=== PATIENT | female | born 1950 | race Caucasian/White ===

== ENCOUNTER 2019-04-30 19:59 | Observation (INO) ==
[2019-04-30] MEDS ORDERED: DiphenhydrAMINE HCL 50 MG/ML VIAL IV STA (20:20)
[2019-04-30] MEDS ORDERED: SODIUM CHLORIDE 0.9% 1000ML 1,000 ML IV ONE (20:20)
[2019-04-30] MEDS ORDERED: METOCLOPRAMIDE HCL INJ 5 MG/ML 2 ML VIAL IV STA (20:20)
--- NOTE | 2019-04-30 20:49 | XRay Report ---
SINGLE VIEW CHEST CLINICAL HISTORY: Atypical chest pain. Vertigo. FINDINGS: An AP, portable, upright chest radiograph is obtained. No prior studies are available for c omparison at the time of dictation. The examination is degraded by portable technique and patient rot ation. The heart is enlarged and there is atherosclerotic calcification of the thoracic aorta. Emphy sematous change is suggested. No airspace consolidation or large pleural effusion is identified. No p neumothorax is seen. The skeletal structures are osteopenic. The bony thorax is grossly intact. IMPRESSION: Cardiomegaly and suspect emphysema. No acute cardiopulmonary abnormality is identified. Electronically signed by: Augusto Vega M.D. 04/30/2019 8:48 PM
[2019-04-30 20:50] LABS: Basophils # (auto) 0.02 K/uL (0-0.2); Basophils % (auto) 0.3 %; Eosinophils # (auto) 0.03 K/uL (0-0.5); Eosinophils % (auto) 0.4 %; Hematocrit (blood only) 37.1 % (37-47); Hemoglobin 12.9 g/dL (12.0-16.0); Immature Granulocytes # (auto) 0.01 K/uL (0.00-0.02); Immature Granulocytes % (auto) 0.1 %; Lymphocytes # (auto) 0.84 K/uL (1.2-3.4); Mean Corpuscular Hgb Conc 34.8 g/dL (32-36); Mean Corpuscular Volume 92.3 fL (80-100); Mean Platelet Volume 10.4 fL (7.4-10.4); Monocytes # (auto) 0.23 K/uL (0.11-0.59); Neutrophils # (auto) 6.48 K/uL (1.4-6.5); Neutrophils % (auto) 85.2 %; Platelet Count 199 K/uL (130-400); RDW Coefficient of Variation 12.7 % (11.5-14.5); RDW Standard Deviation 42.8 fL (36.4-46.3); Red Blood Count 4.02 M/uL (4.2-5.4); White Blood Count 7.61 K/uL (4.8-10.8)
[2019-04-30 21:08] LABS: Alanine Aminotransferase 28 U/L (12-78); Aspartate Aminotransferase 33 U/L (15-37); BUN Creatinine Ratio 15.2 (10-20); Bilirubin Direct < 0.1 mg/dl (0-0.2); Blood Urea Nitrogen 15 mg/dl (7-18); Carbon Dioxide 25 mmol/L (21-32); Chloride 105 mmol/L (98-107); Est GFR (African American) 67.9; Est GFR (Non-African American) 58.6; Glucose 125 mg/dl (70-99); Phosphorus 3.1 mg/dl (2.5-4.9); Potassium 3.4 mmol/L (3.5-5.1); Sodium 140 mmol/L (136-145)
[2019-04-30 21:10] LABS: iSTAT Creatinine 0.9 mg/dl (0.6-1.3); iSTAT Hemoglobin 12.9 g/dl (12.0-16.0); iSTAT Ionized Calcium 1.1 mmol/l (1.12-1.32); iSTAT Potassium 3.5 mEq/L (3.3-5.0)
[2019-04-30] MEDS ORDERED: OPTIRAY 320 125ml IV PRN (21:14)
[2019-04-30 21:17] LABS: Albumin Globulin Ratio 1.1 (0.9-2); Alkaline Phosphatase 75 U/L (45-117); Bilirubin,Total 0.4 mg/dl (0.2-1); Globulin 3.6 gm/dl (2.5-4.0); Total Protein 7.6 gm/dl (6.4-8.2); Troponin I < 0.015 ng/ml (0-0.045)
--- NOTE | 2019-04-30 21:25 | CT Scan Report ---
UNENHANCED CT OF THE BRAIN; CT ANGIOGRAM OF THE BRAIN; CT ANGIOGRAM OF THE NECK CLINICAL HISTORY: Vertigo. Dizziness. COMPARISON STUDY: No priors. TECHNIQUE: Unenhanced axial CT scan of the brain is performed. Subsequently, following the IV adminis tration of 120 of Optiray 320, CT angiogram of the head and neck was performed from the aortic arch t o the vertex. Images are reviewed in the axial, sagittal, and coronal planes. 3-D MIPS images are cre ated and assessed. IV contrast was administered without complication. All measurements were calculate d based on NASCET criteria. A dose lowering technique was utilized adhering to the principles of ALA RA. CT DOSE: 875.09 mGy.cm FINDINGS: Brain parenchyma: The brain parenchyma is normal in appearance. There is no hemorrhage, mass effect, or evidence of acute territorial ischemia by CT criteria. There is no evidence of enhancing mass lesi on on the angiogram phase images. The ventricles, sulci, and cisterns are normal in configuration. Gr ay-white matter differentiation is preserved. No extra-axial fluid collection is seen. Thoracic aorta: There is mild atherosclerotic calcification of the visualized thoracic aorta. Visuali zed portions of the thoracic aorta are normal in caliber. The aortic arch demonstrates standard 3-ves ashley anatomy. Right carotid arterial system: The right common carotid artery is widely patent, as are the right int ernal and external carotid arteries. Left carotid arterial system: The left common carotid artery is widely patent, as are the left design engineering intern al and external carotid arteries. Vertebral arteries: Widely patent bilaterally and codominant. Subclavian arteries: Widely patent bilaterally. Intracranial vasculature: There is atherosclerotic calcification of the cavernous carotid arteries. T here is origin of the right posterior cerebral artery and a large left posterior communicating artery. The internal carotid arteries are patent at the skull base, as are the anterior and middle ce rebral arteries bilaterally. The vertebrobasilar system and posterior cerebral arteries are widely pa tent. The basilar artery is diminutive. The vertebral arteries are codominant. There is no aneurysm, high-grade stenosis, or focal vessel cut off seen throughout the intracranial circulation. Jugular veins: Widely patent bilaterally. Dural sinuses: Patent. Lung apices: Partially visualized upper lobe lung parenchyma appears clear. Soft tissues: The visualized pharyngeal soft tissues are normal in appearance noting angiographic pha se technique. The oropharyngeal airway appears widely patent. The salivary and thyroid glands are nor mal in appearance. No cervical lymphadenopathy is seen. Orbits: The bony orbits are intact. Orbital contents are normal in appearance. Skeletal structures: The skeletal structures are osteopenic. The calvarium appears intact. The cervic al spine is maintained noting mild spondylosis. No lytic or blastic lesion is seen. Sinuses and mastoids: Trace mucosal thickening is seen in the right maxillary antrum. The remaining p aranasal sinuses are clear. There are small mastoid effusions, left larger than right. IMPRESSION: 1. There is no hemorrhage, mass effect, or evidence of acute territorial ischemia by CT criteria. 2. Unremarkable CT angiogram of the brain. 3. Unremarkable CT angiogram of the neck. Electronically signed by: Augusto Vega M.D. 04/30/2019 9:24 PM
[2019-04-30] MEDS ORDERED: MECLIZINE HCL 25 MG TAB PO STA (22:03)
[2019-04-30] MEDS ORDERED: DEXAMETHASONE SOD PHOSPHATE 10 MG in SYRINGE 0 ML IV STA (22:09)
--- NOTE | 2019-04-30 22:09 | Emergency Department Note ---
Entered by Sadie El acting as a scribe for History of Present Illness General Chief complaint: Vomiting Stated complaint: DIZZY,VOMTING Time Seen by Provider: 04/30/19 20:09 Source: patient History of Present Illness Onset (ago): hour(s) 4 Location: head Severity: similar to prior episodes Pain Consistency: + other (persistent) Maximum Pain Intensity: 0 Quality: + other (room-spinning dizziness) Exacerbated By: + movement Associated symptoms: + other (negative congestion; negative diarrhea); no cough and no fever/chills Treatments prior to arrival: none The patient is a 68 year old female who presents to the Emergency Room with complaints of persistent room-spinning dizziness that began at about 1600, 4 hours prior to arrival. She states that she has been nauseous and vomiting during this time. The patient states that her symptoms are exacerbated with movement. The patient denies recent fever, chills, cough, congestion, and diarrhea. She states that she woke up this morning feeling at her baseline. The patient states that this is similar to a prior episode about one month ago. The patient states that she has had several episodes throughout this month of similar symptoms, but states that she goes several days in between these episodes. She states that she is not on any medication for these symptoms as she has not seen her doctor. Home Medications Home Medications Medication Instructions Recorded Confirmed Type ibuprofen 200 mg PO DIRECTED PRN 04/30/19 04/30/19 History melatonin 0 mg PO HS PRN 04/30/19 04/30/19 History valerian root 0 mg PO DAILY PRN 04/30/19 04/30/19 History Allergies Allergy/AdvReac Type Severity Reaction Status Date / Time Unable to Assess Allergy Unverified 04/30/19 21:14 Past Med/Surg History Medical History No significant past medical history Social History Preferred Language: Burkinan Feels Safe at Home: Yes Smoking Status: Never smoker Review of Systems See HPI for pertinent positives & negatives. and A total of 10 systems reviewed and were otherwise negative Physical Exam Vital Signs Vital Signs - 24 hr 04/30/19 20:03 04/30/19 22:32 05/01/19 00:44 Temperature 36.4 C L Temperature Source Oral Sepsis Recent Fever Within 48 Hours No Sepsis New/Unexplained Change in Mental Status No Sepsis Action Taken by Nursing No Action Required Pulse Rate 59 L Pulse Rate [Right Finger] 63 48 L Pulse Rhythm [Right Finger] Regular Pulse Strength [Right Finger] Normal Respiratory Rate 16 16 17 Respiratory Effort / Characteristics Non-Labored Non-Labored Spontaneous Respiratory Depth Normal Normal Respiratory Pattern Regular Regular Blood Pressure 155/81 H Blood Pressure [Right Arm] 123/73 124/65 Blood Pressure Mean 105 Blood Pressure Mean [Right Arm] 89 84 Blood Pressure Position [Right Arm] Lying Lying Pulse Oximetry 97 97 98 Oxygen Delivery Method Room Air Room Air Room Air GENERAL: Awake, alert, uncomfortable-appearing, in no distress HENT: Normocephalic, atraumatic. Oropharynx with dry mucous membranes and otherwise unremarkable. EYES: Normal conjunctiva. Sclera non-icteric. Bilateral horizontal nystagmus provoked by head movements. Left eye strabismus which the patient reports is chronic. NECK: Supple. No nuchal rigidity. FROM. No JVD. RESPIRATORY: CTAB. CARDIAC: Regular rate, normal rhythm. Extremities warm and well perfused. Pulses equal. ABDOMEN: Soft, non-distended. No tenderness to palpation. No rebound or guarding. No masses. RECTAL: Deferred. MUSCULOSKELETAL: Chest examination reveals no tenderness. The back is symmetrical on inspection without obvious abnormality. There is no CVA tenderness to palpation. No joint edema. LOWER EXTREMITIES: Calves are equal size bilaterally and non-tender. No edema. No discoloration. NEURO: Normal sensorium. No sensory or motor deficits noted. Cerebellar function intact, including finger to nose, alternating palms, heel to freire. 5/5 strength and SILT x 4 extremities. SKIN: No rash or jaundice noted. Course 2012: Past medical records reviewed. The patient was evaluated in room C3. A complete history and physical exam was performed. 2158: Upon reevaluation, the patient was improved but still quite symptomatic. Patient agreeable to proceed with MRI and admission. Administered Medications Ioversol (Optiray 320 125ml) 120 ml IV ONCE PRN PRN Reason: Interaction Checking Stop: 05/04/19 21:13 Last Admin: 04/30/19 21:14 Dose: 120 ml Documented by: [id number] Discontinued Medications Dexamethasone Sodium Phosphate (Decadron Pf) Confirm Administered Dose 10 mg .ROUTE .STK-MED ONE Stop: 04/30/19 22:38 Last Admin: 04/30/19 22:40 Dose: 10 mg Documented by: [id number] Diphenhydramine HCl (Benadryl) 25 mg IV NOW STA Stop: 04/30/19 20:21 Last Admin: 04/30/19 20:33 Dose: 25 mg Documented by: [id number] Sodium Chloride (Nss 1000ml) 1,000 mls @ 999 mls/hr IV .Q1H1M ONE Stop: 04/30/19 21:20 Last Infusion: 04/30/19 21:28 Dose: 0 mls/hr Documented by: [id number] Admin: 04/30/19 20:33 Dose: 999 mls/hr Documented by: [id number] Dexamethasone Sodium Phosphate (10 mg/ Syringe) 2.5 mls @ 1 mls/min IV NOW STA Stop: 04/30/19 22:11 Last Admin: 04/30/19 22:40 Dose: Not Given Documented by: [id number] Meclizine HCl (Antivert) 25 mg PO NOW STA Stop: 04/30/19 22:04 Last Admin: 04/30/19 22:25 Dose: 25 mg Documented by: [id number] Metoclopramide HCl (Reglan) 10 mg IV NOW STA Stop: 04/30/19 20:21 Last Admin: 04/30/19 20:33 Dose: 10 mg Documented by: [id number] Medical Decision Making Differential Diagnosis Differential diagnosis: Etiologies such as benign positional vertigo, dehydration, hypovolemia, anemia, tumor, infection, hypoglycemia, electrolyte abnormalities, cardiac sources, intracerebral event, toxicologic, neurologic, as well as others were entertained. Medical Records Attestation: I reviewed the patient's medical records. Home Medications Current Medication List: was personally reviewed by me Laboratory Data Attestation: I reviewed the patient's lab results. Result diagrams: 04/30/19 20:26 04/30/19 20:26 Lab Results 04/30/19 04/30/19 04/30/19 Range/Units 20:26 20:26 20:34 WBC 7.61 (4.8-10.8) K/uL RBC 4.02 L (4.2-5.4) M/uL Hgb 12.9 (12.0-16.0) g/dL POC Hgb 12.9 (12.0-16.0) g/dl Hct 37.1 (37-47) % POC Hct 38 (37-47) % MCV 92.3 (80-100) fL MCH 32.1 (25-34) pg MCHC 34.8 (32-36) g/dL RDW Std Deviation 42.8 (36.4-46.3) fL RDW Coeff of Davis 12.7 (11.5-14.5) % Plt Count 199 (130-400) K/uL MPV 10.4 (7.4-10.4) fL Immature Gran % (Auto) 0.1 % Neut % (Auto) 85.2 % Lymph % (Auto) 11.0 % Harper % (Auto) 3.0 % Eos % (Auto) 0.4 % Baso % (Auto) 0.3 % Immature Gran # (Auto) 0.01 (0.00-0.02) K/uL Neut # (Auto) 6.48 (1.4-6.5) K/uL Lymph # (Auto) 0.84 L (1.2-3.4) K/uL Harper # (Auto) 0.23 (0.11-0.59) K/uL Eos # (Auto) 0.03 (0-0.5) K/uL Baso # (Auto) 0.02 (0-0.2) K/uL POC Sodium 140 (135-144) mEq/L Sodium 140 (136-145) mmol/L POC Potassium 3.5 (3.3-5.0) mEq/L Potassium 3.4 L (3.5-5.1) mmol/L POC Chloride 103 (101-112) mEq/L Chloride 105 (98-107) mmol/L Carbon Dioxide 25 (21-32) mmol/L POC Total CO2 24 (24-31) mEq/l Anion Gap 11.0 (3-11) POC Anion Gap 18.0 (16-25) mmol/L POC BUN 15 (7-18) mg/dl BUN 15 (7-18) mg/dl Creatinine 0.99 (0.6-1.2) mg/dl POC Creatinine 0.9 (0.6-1.3) mg/dl Est Cr Clr Drug Dosing 41.0 ml/min Est GFR ( Amer) 67.9 Est GFR (Non-Af Amer) 58.6 BUN/Creatinine Ratio 15.2 (10-20) Glucose 125 H (70-99) mg/dl POC Glucose (other) 132 H (70-99) mg/dl Calcium 9.0 (8.5-10.1) mg/dl POC Ioniz Calcium Blas 1.10 L (1.12-1.32) mmol/l Phosphorus 3.1 (2.5-4.9) mg/dl Magnesium 2.0 (1.8-2.4) mg/dl Total Bilirubin 0.4 (0.2-1) mg/dl Direct Bilirubin < 0.1 (0-0.2) mg/dl AST 33 (15-37) U/L ALT 28 (12-78) U/L Alkaline Phosphatase 75 (45-117) U/L Troponin I < 0.015 (0-0.045) ng/ml Total Protein 7.6 (6.4-8.2) gm/dl Albumin 4.0 (3.4-5.0) gm/dl Globulin 3.6 (2.5-4.0) gm/dl Albumin/Globulin Ratio 1.1 (0.9-2) Lipase 560 H (73-393) U/L TSH 1.840 (0.300-4.500) uIu/ml Imaging Data Radiologist's Impression: Radiology results as stated below per my review and the radiologist's interpretation: SINGLE VIEW CHEST CLINICAL HISTORY: Atypical chest pain. Vertigo. FINDINGS: An AP, portable, upright chest radiograph is obtained. No prior studies are available for comparison at the time of dictation. The examination is degraded by portable technique and patient rotation. The heart is enlarged and there is atherosclerotic calcification of the thoracic aorta. Emphysematous change is suggested. No airspace consolidation or large pleural effusion is identified. No pneumothorax is seen. The skeletal structures are osteopenic. The bony thorax is grossly intact. IMPRESSION: Cardiomegaly and suspect emphysema. No acute cardiopulmonary abnormality is identified. Electronically signed by: Augusto Vega M.D. 04/30/2019 8:[address] OF THE BRAIN; CT ANGIOGRAM OF THE BRAIN; CT ANGIOGRAM OF THE NECK CLINICAL HISTORY: Vertigo. Dizziness. COMPARISON STUDY: No priors. TECHNIQUE: Unenhanced axial CT scan of the brain is performed. Subsequently, following the IV administration of 120 of Optiray 320, CT angiogram of the head and neck was performed from the aortic arch to the vertex. Images are reviewed in the axial, sagittal, and coronal planes. 3-D MIPS images are created and assessed. IV contrast was administered without complication. All measurements were calculated based on NASCET criteria. A dose lowering technique was utilized adhering to the principles of ALARA. CT DOSE: 875.09 mGy.cm FINDINGS: Brain parenchyma: The brain parenchyma is normal in appearance. There is no hemorrhage, mass effect, or evidence of acute territorial ischemia by CT criteria. There is no evidence of enhancing mass lesion on the angiogram phase images. The ventricles, sulci, and cisterns are normal in configuration. Espinoza- white matter differentiation is preserved. No extra-axial fluid collection is seen. Thoracic aorta: There is mild atherosclerotic calcification of the visualized thoracic aorta. Visualized portions of the thoracic aorta are normal in caliber. The aortic arch demonstrates standard 3-vessel anatomy. Right carotid arterial system: The right common carotid artery is widely patent, as are the right internal and external carotid arteries. Left carotid arterial system: The left common carotid artery is widely patent, as are the left internal and external carotid arteries. Vertebral arteries: Widely patent bilaterally and codominant. Subclavian arteries: Widely patent bilaterally. Intracranial vasculature: There is atherosclerotic calcification of the cavernous carotid arteries. There is origin of the right posterior cerebral artery and a large left posterior communicating artery. The internal carotid arteries are patent at the skull base, as are the anterior and middle cerebral arteries bilaterally. The vertebrobasilar system and posterior cerebral arteries are widely patent. The basilar artery is diminutive. The vertebral arteries are codominant. There is no aneurysm, high-grade stenosis, or focal vessel cut off seen throughout the intracranial circulation. Jugular veins: Widely patent bilaterally. Dural sinuses: Patent. Lung apices: Partially visualized upper lobe lung parenchyma appears clear. Soft tissues: The visualized pharyngeal soft tissues are normal in appearance noting angiographic phase technique. The oropharyngeal airway appears widely patent. The salivary and thyroid glands are normal in appearance. No cervical lymphadenopathy is seen. Orbits: The bony orbits are intact. Orbital contents are normal in appearance. Skeletal structures: The skeletal structures are osteopenic. The calvarium appears intact. The cervical spine is maintained noting mild spondylosis. No lytic or blastic lesion is seen. Sinuses and mastoids: Trace mucosal thickening is seen in the right maxillary antrum. The remaining paranasal sinuses are clear. There are small mastoid effusions, left larger than right. IMPRESSION: 1. There is no hemorrhage, mass effect, or evidence of acute territorial ischemia by CT criteria. 2. Unremarkable CT angiogram of the brain. 3. Unremarkable CT angiogram of the neck. Electronically signed by: Augusto Vega M.D. 04/30/2019 9:24 PM ECG Data Attestation: I personally reviewed and interpreted this ECG as follows: Indication: nausea Rate (beats per minute): 58 Rhythm: sinus bradycardia Findings: + other (normal axis; no overt acute ischemia ) and + PVC (occasional) Blood Pressure Blood Pressure Findings: Elevated blood pressure Blood Pressure Disposition: Referred to patients primary care provider MDM Narrative The patient is a pleasant 68-year-old woman with a past medical history of bilateral hearing impairment with hearing aids who presents emergency department with an acute episode beginning at 1600, 4 hours [employer], with worsening of vertigo in the setting of a month-long history of intermittent but fairly regular episodes of vertigo per hpi. On arrival patient is uncomfortable but in no acute distress, afebrile with stable vital signs. The patient does appear clinically dry. She does exhibit bilateral horizontal nystagmus which is exacerbated by head movements and improves once stationary. Left eye strabismus present which the patient reports is chronic. Otherwise, the patient has no focal neurologic deficits. Speech is fluent. Cerebellar function intact includin g [id number], alternating palms, [id number]. 5/5 strength and SILT x 4 extremities. Aside from patient's bilateral nystagmus, presentation/exam is most suggestive of peripheral etiology. Additionally, sx have been intermittent for past month and acute episode today began 4 hours [employer] and thus outside of TPA window, therefore no indication for stroke activation. EKG demonstrates sinus bradycardia with occasional PVCs but no overt acute ischemia. Chest x-ray with no acute process. CTA of the head and neck unremarkable for CVA, ICH, or severe narrowing or occlusion of large vessels and so there is no target for endovascular therapy. WBC, H/H, platelets wnl. Chemistry without acidosis. LFTs and electrolytes unremarkable. Troponin negative. Patient with moderate improvement after IV fluid hydration, Reglan, Benadryl. However still quite symptomatic when sitting up with residual nystagmus. Thus, we will proceed with MRI to further exclude central etiology however given patient continues to be symptomatic reasonable to proceed with admission. Patient is agreeable with this. We will trial dose of steroids for possible component of labyrinthitis though patient denies any recent viral illnesses. Dr. Haynes, [facility] hospitalist paged and confirmed admission and case d/w [facility] admitting resident, Dr. Andrea Guerrero, who will evaluate the for admission. Impression & Plan Vertigo, Dehydration, Sinus bradycardia on ECG Discharge Plan Visit Data *Final* Discharge Date/Time: 05/01/19 00:54 Chief Complaint: Vomiting Stated Complaint: DIZZY,VOMTING ED Provider: Ej Gomez Discharge Problem: Vertigo, Dehydration, Sinus bradycardia on ECG Patient Disposition: Admitted As Inpatient Discharge Instructions Interventions: ED Discharge Assessment Last Done: 05/01/19 00:54 The scribe's documentation has been prepared under my direction and personally reviewed by me in its entirety. I confirm that the note above accurately reflects all work, treatment, procedures, and medical decision making performed by me.
[2019-04-30] MEDS ORDERED: DEXAMETHASONE **PF** INJ 10 MG/ML VIAL ONE (22:37)
--- NOTE | 2019-05-01 00:01 | History & Physical Report ---
Date of Service April 30, 2019 Assessment & Plan (1) TIA (transient ischemic attack): 68-year-old female with a history of stapedectomy presents with intractable vertigo/TIA symptoms. Intractable vertigo/TIA symptoms Stroke work-up commenced in the ED, continuing with inpatient observation Neurology consulted, appreciate recommendations CTA head and neck was negative MRI brain with IAC considering history of stapedectomy Aspirin given the emergency room, continue falls protocol/aspiration protocol, PT/OT Continue symptomatic controlZofran, meclizine Continue IV fluids N.p.o./full code/SCDs, ambulate (2) Vertigo: (3) Vomiting: History of Present Illness Primary Care Provider: NO PCP 68-year-old female with a history of stapedectomy presents with severe vertigo beginning today at 4:30 PM. Patient states that she has had episodic vertigo over the past 1 month. She denies any focal neuro deficits including facial droop, speech issues, weakness, numbness, headache. The patient denies any recent history of viral symptoms including URI and gastroenteritis. The patient does report having approximately 4 episodes of vomiting since her symptoms began Allergies Allergy/AdvReac Type Severity Reaction Status Date / Time Unable to Assess Allergy Unverified 04/30/19 21:14 Home Medications Home Medications Medication Instructions Recorded Confirmed Type ibuprofen 200 mg PO DIRECTED PRN 04/30/19 04/30/19 History melatonin 0 mg PO HS PRN 04/30/19 04/30/19 History valerian root 0 mg PO DAILY PRN 04/30/19 04/30/19 History Past Med/Surg History Medical History No significant past medical history Social History Preferred Language: German Feels Safe at Home: Yes Smoking Status: Never smoker Review of Systems Review of Systems: All systems reviewed & are unremarkable except as noted in HPI & below Physical Exam Constitutional: WD/WN, vitals as above Eyes: PERRL, conjunctivae normal, anicteric sclerae + nystagmus (Horizontal) ENMT: Ears: + TM abnormality (Mucoid effusion behind right TM, no erythema); no hearing impairment and no external ear abnormality Nose: no external nose abnormality Mouth: no lip abnormality, no oropharynx abnormality and no tongue abnormality Neck: trachea midline, no thyromegaly Respiratory: normal respiratory effort, lungs clear to auscultation Cardiovascular: RRR, no murmur, no edema Gastrointestinal (Abdomen): normal bowel sounds, soft, nontender, no hepatosplenomegaly Musculoskeletal: no cyanosis or clubbing, extremities motor strength 5/5 Skin: no rashes, warm and dry Neurologic: PERRL, EOMI, accommodation nl, no face palsy, no dysarthria Psychiatric: A+Ox3, euthymic affect Results & Data Vital Signs (Past 12 Hours) Vital Signs Temp Pulse Pulse Resp BP BP Pulse Ox 04/30/19 22:32 63 16 123/73 97 04/30/19 20:03 36.4 C L 59 L 16 155/81 H 97 Diagnostic Findings [place], [place] [phone] CT Scan Report Patient: NORMAN MEDINA EAdmjame Date: 04/30/19 MR#: [id number]: [id number] Acct ID:[id number]: Date: 1950[facility] Zip: [place] [address] Age: 68Location: ED Sex: F Room/Bed: Att Phy: Diagnosis: DIZZY,VOMTING Roshni Phy: PCP,NO Service Date: 04/30/19 Fam Phy: Interpreting Phy: Augusto Vega MD Admit Phy: Ordering Phy: Ej Gomez M.D. cc: ~ UNENHANCED CT OF THE BRAIN; CT ANGIOGRAM OF THE BRAIN; CT ANGIOGRAM OF THE NECK CLINICAL HISTORY: Vertigo. Dizziness. COMPARISON STUDY: No priors. TECHNIQUE: Unenhanced axial CT scan of the brain is performed. Subsequently, following the IV administration of 120 of Optiray 320, CT angiogram of the head and neck was performed from the aortic arch to the vertex. Images are reviewed in the axial, sagittal, and coronal planes. 3-D MIPS images are created and assessed. IV contrast was administered without complication. All measurements were calculated based on NASCET criteria. A dose lowering technique was utilized adhering to the principles of ALARA. CT DOSE: 875.09 mGy.cm FINDINGS: Brain parenchyma: The brain parenchyma is normal in appearance. There is no hemorrhage, mass effect, or evidence of acute territorial ischemia by CT criteria. There is no evidence of enhancing mass lesion on the angiogram phase images. The ventricles, sulci, and cisterns are normal in configuration. Espinoza- white matter differentiation is preserved. No extra-axial fluid collection is seen. Thoracic aorta: There is mild atherosclerotic calcification of the visualized thoracic aorta. Visualized portions of the thoracic aorta are normal in caliber. The aortic arch demonstrates standard 3-vessel anatomy. Right carotid arterial system: The right common carotid artery is widely patent, as are the right internal and external carotid arteries. Left carotid arterial system: The left common carotid artery is widely patent, as are the left internal and external carotid arteries. Vertebral arteries: Widely patent bilaterally and codominant. Subclavian arteries: Widely patent bilaterally. Intracranial vasculature: There is atherosclerotic calcification of the cavernous carotid arteries. There is origin of the right posterior cerebral artery and a large left posterior communicating artery. The internal carotid arteries are patent at the skull base, as are the anterior and middle cerebral arteries bilaterally. The vertebrobasilar system and posterior cerebral arteries are widely patent. The basilar artery is diminutive. The vertebral arteries are codominant. There is no aneurysm, high-grade stenosis, or focal vessel cut off seen throughout the intracranial circulation. Jugular veins: Widely patent bilaterally. Dural sinuses: Patent. Lung apices: Partially visualized upper lobe lung parenchyma appears clear. Soft tissues: The visualized pharyngeal soft tissues are normal in appearance noting angiographic phase technique. The oropharyngeal airway appears widely patent. The salivary and thyroid glands are normal in appearance. No cervical lymphadenopathy is seen. Orbits: The bony orbits are intact. Orbital contents are normal in appearance. Skeletal structures: The skeletal structures are osteopenic. The calvarium appears intact. The cervical spine is maintained noting mild spondylosis. No lytic or blastic lesion is seen. Sinuses and mastoids: Trace mucosal thickening is seen in the right maxillary antrum. The remaining paranasal sinuses are clear. There are small mastoid effusions, left larger than right. IMPRESSION: 1. There is no hemorrhage, mass effect, or evidence of acute territorial ischemia by CT criteria. 2. Unremarkable CT angiogram of the brain. 3. Unremarkable CT angiogram of the neck. [facility], [place] [phone] CT Scan Report Patient: NORMAN MEDINA EAdmit Date: 04/30/19 MR#: [id number]: [address] Acct ID:[id number]: Date: 1950ty Zip: [place] [address] Age: 68Location: ED Sex: F Room/Bed: Att Phy: Diagnosis: DIZZY,VOMTING Roshni Phy: PCP,NO Service Date: 04/30/19 Fam Phy: Interpreting Phy: Augusto Vega MD Admit Phy: Ordering Phy: Ej Gomez M.D. cc: ~ UNENHANCED CT OF THE BRAIN; CT ANGIOGRAM OF THE BRAIN; CT ANGIOGRAM OF THE NECK CLINICAL HISTORY: Vertigo. Dizziness. COMPARISON STUDY: No priors. TECHNIQUE: Unenhanced axial CT scan of the brain is performed. Subsequently, following the IV administration of 120 of Optiray 320, CT angiogram of the head and neck was performed from the aortic arch to the vertex. Images are reviewed in the axial, sagittal, and coronal planes. 3-D MIPS images are created and assessed. IV contrast was administered without complication. All measurements were calculated based on NASCET criteria. A dose lowering technique was utilized adhering to the principles of ALARA. CT DOSE: 875.09 mGy.cm FINDINGS: Brain parenchyma: The brain parenchyma is normal in appearance. There is no hemorrhage, mass effect, or evidence of acute territorial ischemia by CT criteria. There is no evidence of enhancing mass lesion on the angiogram phase images. The ventricles, sulci, and cisterns are normal in configuration. Espinoza- white matter differentiation is preserved. No extra-axial fluid collection is seen. Thoracic aorta: There is mild atherosclerotic calcification of the visualized thoracic aorta. Visualized portions of the thoracic aorta are normal in caliber. The aortic arch demonstrates standard 3-vessel anatomy. Right carotid arterial system: The right common carotid artery is widely patent, as are the right internal and external carotid arteries. Left carotid arterial system: The left common carotid artery is widely patent, as are the left internal and external carotid arteries. Vertebral arteries: Widely patent bilaterally and codominant. Subclavian arteries: Widely patent bilaterally. Intracranial vasculature: There is atherosclerotic calcification of the cavernous carotid arteries. There is origin of the right posterior cerebral artery and a large left posterior communicating artery. The internal carotid arteries are patent at the skull base, as are the anterior and middle cerebral arteries bilaterally. The vertebrobasilar system and posterior cerebral arteries are widely patent. The basilar artery is diminutive. The vertebral arteries are codominant. There is no aneurysm, high-grade stenosis, or focal vessel cut off seen throughout the intracranial circulation. Jugular veins: Widely patent bilaterally. Dural sinuses: Patent. Lung apices: Partially visualized upper lobe lung parenchyma appears clear. Soft tissues: The visualized pharyngeal soft tissues are normal in appearance noting angiographic phase technique. The oropharyngeal airway appears widely patent. The salivary and thyroid glands are normal in appearance. No cervical lymphadenopathy is seen. Orbits: The bony orbits are intact. Orbital contents are normal in appearance. Skeletal structures: The skeletal structures are osteopenic. The calvarium appears intact. The cervical spine is maintained noting mild spondylosis. No lytic or blastic lesion is seen. Sinuses and mastoids: Trace mucosal thickening is seen in the right maxillary antrum. The remaining paranasal sinuses are clear. There are small mastoid effusions, left larger than right. IMPRESSION: 1. There is no hemorrhage, mass effect, or evidence of acute territorial ischemia by CT criteria. 2. Unremarkable CT angiogram of the brain. 3. Unremarkable CT angiogram of the neck. [place], [place] [phone] CT Scan Report Patient: NORMAN MEDINA EAdmit Date: 04/30/19 MR#: [id number]: [address] Acct ID:[id number]: Date: 1950[facility] Zip: [place] [address] Age: 68Location: ED Sex: F Room/Bed: Att Phy: Diagnosis: DIZZY,VOMTING Roshni Phy: PCP,NO Service Date: 04/30/19 [facility] Phy: Interpreting Phy: Augusto Vega MD Admit Phy: Ordering Phy: Ej Gomez M.D. cc: ~ UNENHANCED CT OF THE BRAIN; CT ANGIOGRAM OF THE BRAIN; CT ANGIOGRAM OF THE NECK CLINICAL HISTORY: Vertigo. Dizziness. COMPARISON STUDY: No priors. TECHNIQUE: Unenhanced axial CT scan of the brain is performed. Subsequently, f ollowing the IV administration of 120 of Optiray 320, CT angiogram of the head and neck was performed from the aortic arch to the vertex. Images are reviewed in the axial, sagittal, and coronal planes. 3-D MIPS images are created and assessed. IV contrast was administered without complication. All measurements were calculated based on NASCET criteria. A dose lowering technique was utilized adhering to the principles of ALARA. CT DOSE: 875.09 mGy.cm FINDINGS: Brain parenchyma: The brain parenchyma is normal in appearance. There is no hemorrhage, mass effect, or evidence of acute territorial ischemia by CT criteria. There is no evidence of enhancing mass lesion on the angiogram phase images. The ventricles, sulci, and cisterns are normal in configuration. Espinoza- white matter differentiation is preserved. No extra-axial fluid collection is seen. Thoracic aorta: There is mild atherosclerotic calcification of the visualized thoracic aorta. Visualized portions of the thoracic aorta are normal in caliber. The aortic arch demonstrates standard 3-vessel anatomy. Right carotid arterial system: The right common carotid artery is widely patent, as are the right internal and external carotid arteries. Left carotid arterial system: The left common carotid artery is widely patent, as are the left internal and external carotid arteries. Vertebral arteries: Widely patent bilaterally and codominant. Subclavian arteries: Widely patent bilaterally. Intracranial vasculature: There is atherosclerotic calcification of the cavernous carotid arteries. There is origin of the right posterior cerebral artery and a large left posterior communicating artery. The internal carotid arteries are patent at the skull base, as are the anterior and middle cerebral arteries bilaterally. The vertebrobasilar system and posterior cerebral arteries are widely patent. The basilar artery is diminutive. The vertebral arteries are codominant. There is no aneurysm, high-grade stenosis, or focal vessel cut off seen throughout the intracranial circulation. Jugular veins: Widely patent bilaterally. Dural sinuses: Patent. Lung apices: Partially visualized upper lobe lung parenchyma appears clear. Soft tissues: The visualized pharyngeal soft tissues are normal in appearance noting angiographic phase technique. The oropharyngeal airway appears widely patent. The salivary and thyroid glands are normal in appearance. No cervical lymphadenopathy is seen. Orbits: The bony orbits are intact. Orbital contents are normal in appearance. Skeletal structures: The skeletal structures are osteopenic. The calvarium appears intact. The cervical spine is maintained noting mild spondylosis. No lytic or blastic lesion is seen. Sinuses and mastoids: Trace mucosal thickening is seen in the right maxillary antrum. The remaining paranasal sinuses are clear. There are small mastoid effusions, left larger than right. IMPRESSION: 1. There is no hemorrhage, mass effect, or evidence of acute territorial ischemia by CT criteria. 2. Unremarkable CT angiogram of the brain. 3. Unremarkable CT angiogram of the neck. Code Status & VTE Plan Code Status Full code VTE Prophylaxis Plan VTE Prophylaxis will be ordered: Yes Supervising Physician Co-Signing Physician Notes Attending addendum: I have physically seen this patient, have supervised the medical residents activities, and agree with the H&P unless as otherwise noted. Assessment and Plan: TIA type symptoms/intractable vertigo- Stroke without TPA protocol begun in the ED, and will complete. CT head was negative. CTA head and neck was negative. MRI brain IAC ordered, but with history of stapedectomy, will need to review previous surgery to verify safety. Zofran 4 mg IV every 6 hours as needed. Meclizine 5 mg p.o. every 6 hours as needed. IV fluids. Consult neurology. Remainder of orders and notations as noted. PG Care Time/CCT Total # of Minutes Spent Total Time Spent with Patient: Total time spent is greater than 50% in coordination of care (as documented) at patient's floor/unit and/or counseling patient: Resident Activity Tracking Resident Involvement: Resident Care Provided Care Provided: Adult Hospital Medicine
[2019-05-01] MEDS ORDERED: PHARMACIST DISCHARGE MED REC CONSULT PRN (02:12)
[2019-05-01] MEDS ORDERED: ACETAMINOPHEN 325 MG TAB PO PRN (02:12)
[2019-05-01] MEDS ORDERED: ONDANSETRON INJ 2 MG/ML 2 ML VIAL IV PRN (02:12)
[2019-05-01] MEDS ORDERED: MECLIZINE 12.5 MG TAB PO PRN (02:12)
[2019-05-01] MEDS: SODIUM CHLORIDE 0.9% 1000ML 1,000 ML IV SCH ×2 (02:34→13:33)
[2019-05-01] MEDS: POTASSIUM CHLORIDE / WTR 10 MEQ/100 ML PLCT IV SCH ×2 (03:34→05:18)
[2019-05-01 07:07] LABS: Hematocrit (blood only) 37.3 % (37-47); Lymphocytes # (auto) 0.44 K/uL (1.2-3.4); Lymphocytes % (auto) 8.7 %; Mean Corpuscular Hgb Conc 34.9 g/dL (32-36); Mean Corpuscular Volume 91.9 fL (80-100); Mean Platelet Volume 10.1 fL (7.4-10.4); Monocytes # (auto) 0.02 K/uL (0.11-0.59); Monocytes % (auto) 0.4 %; Neutrophils # (auto) 4.57 K/uL (1.4-6.5); Neutrophils % (auto) 90.9 %; Platelet Count 194 K/uL (130-400); RDW Coefficient of Variation 12.6 % (11.5-14.5); RDW Standard Deviation 42.7 fL (36.4-46.3); Red Blood Count 4.06 M/uL (4.2-5.4); White Blood Count 5.03 K/uL (4.8-10.8)
[2019-05-01 07:15] LABS: Prothrombin Time 10.7 Seconds (9.0-12.0)
[2019-05-01 07:43] LABS: Creatinine Clr Calc Pharmacy 51.1 ml/min; Est GFR (African American) 75.1; Est GFR (Non-African American) 64.8; Potassium 3.9 mmol/L (3.5-5.1)
[2019-05-01 08:18] LABS: Estimated Average Glucose 108 mg/dl; Hemoglobin A1C 5.4 % (4.5-5.6)
[2019-05-01] MEDS ORDERED: ASPIRIN 81 MG ECTAB PO SCH (09:00)
--- NOTE | 2019-05-01 09:18 | Neurology Consultation ---
Date of Consultation May 01, 2019 Assessment & Plan (1) Vertigo: This patient's presentation seems most consistent with vertigo of peripheral origin. Mnire's disease is probably unlikely and it sounds like her hearing loss is related to otosclerosis for which she required a stapedectomy/implant several years ago. In looking into this issue further, many individuals with a history of otosclerosis also develop episodic dizziness or vertigo. I think it would be reasonable to continue with meclizine as ordered. I am uncertain to what extent José Miguel maneuvers and physical therapy may assist with her symptoms but it would probably be reasonable to proceed with outpatient physical therapy in this regard as well. This patient should probably have an outpatient ENT assessment at a vestibular center as well. I do not really have any further specific neurological recommendations for her condition. She does not present with symptoms or testing suggestive of vertebrobasilar insufficiency or stroke. History of Present Illness Reason for Consultation: Rule out stroke, intractable vertigo Requesting Physician: Marc Guerrero MD Attending Physician: Jie Nathan MD History of Present Illness The patient is a 68-year-old female with a chief complaint of vertigo that began about 4 hours prior to arrival in the emergency department. Her vertigo began while driving in from out of town, to visit 1 of her children. She indicates that her vertigo is worse with movement, especially turning her head to either side. She complains of associated nausea and vomiting. She does admit that her symptoms are modestly improved compared with her onset yesterday. She has a history of chronic hearing loss related to what sounds like a history of otosclerosis for which she required a stapedectomy on the left many years ago. She denies a history of Mnire's disease. She admits that she experienced a very similar episode about 1 month ago that resolved on its own. She was observed to have some horizontal nystagmus in the emergency department and given her rather severe symptomatology she was admitted for a possible stroke. A CT of the head as well as CT angiography of the head and neck were unremarkable. Again, this morning, the patient reports at least modest symptomatic improvement. She denies expressing any associated diplopia, vision loss, dysarthria, dysphagia, focal weakness, or sensory loss. She does admit to some unsteadiness with gait. Additional details as below. Family history patient denies a family history of Mnire's disease. She reports that her mother had a similar problem with hearing loss, however. 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 Respiratory: no cough and no dyspnea Cardiovascular: no chest pain and no palpitations Gastrointestinal: as per Subjective / HPI, + nausea and + vomiting Genitourinary: no dysuria Musculoskeletal: no myalgia Integumentary: no rash and no lesions Neurologic: as per Subjective / HPI and + unsteadiness; no localized weakness, no loss of sensation, no tremor(s), no syncope, no headache(s) and no abnormal speech Psychiatric: no depression and no anxiety Hematologic / Lymphatic: no easy bleeding and no coagulopathy Physical Exam Physical Exam: The patient is a well-developed, well-nourished elderly female. She is alert and fully oriented. Recent and remote memory intact. Attention and concentration normal. Patient exhibits a normal spontaneous speech pattern as well as an age-appropriate fund of knowledge and normal comprehension of vocabulary. Visual ruiz full to confrontation. Visual acuity normal although reduced for the left as compared to the right. Pupils equal round reactive to light and accommodation. Eye movements normal although the left eye is medially deviated in primary gaze. There are a few beats of gaze evoked nystagmus to both the left and right. No vertical nystagmus. Facial sensation intact. There is no facial droop or facial weakness. Hearing diminished to finger rub on the left. Hearing to finger rub on the right normal (hearing aid in place on the right). Palate elevates to midline. Shoulder shrug intact. Tongue protrudes to midline. Sensation intact to all modalities in all 4 limbs. Deep tendon reflexes intact and symmetrical for the arms and legs bilaterally. Plantar responses downgoing bilaterally. There is no dysdiadochokinesia or dysmetria lqkawq-[id number] or vxkr-zq-orsn bilaterally. Ophthalmoscopic examination reveals normal-appearing optic disks and posterior segments. No papilledema or hemorrhages. Carotid pulses normal bilaterally, no bruits to aus cultation. Gait and station not tested due to safety concerns. Muscle strength and tone normal for all 4 limbs proximally and distally. No atrophy. No abnormal movements observed. Abie-Hallpike positive to both the left and right but more so with head turn to the right. Results & Data Vital Signs (Past 12 Hours) Vital Signs Temp Pulse Pulse Resp BP Pulse Ox Pulse Ox 05/01/19 07:40 36.7 C 50 L 16 103/56 L 96 05/01/19 05:44 36.7 C 51 L 18 95/52 L 95 05/01/19 02:56 60 05/01/19 02:12 96 05/01/19 01:00 36.6 C 55 L 16 128/70 97 05/01/19 00:44 48 L 17 124/65 98 04/30/19 22:32 63 16 123/73 97 Laboratory Results Recently completed labs reviewed. WBC 5.03, hemoglobin 13.0, hematocrit 37.3, platelet count 194, sodium 142, potassium 3.9, BUN 12, creatinine 0.91, glucose 134, lipid panel within normal limits although total cholesterol 213. HDL 77. Triglycerides 27. Diagnostic Findings A CT of the head completed yesterday was negative for hemorrhage or acute process. No parenchymal abnormality. Ventricles normal. Images and report reviewed. CT angiography of the head and neck unremarkable. An electrocardiogram completed yesterday revealed sinus bradycardia with occasional PVCs, 58 bpm.
--- NOTE | 2019-05-01 17:20 | Discharge Summary ---
Date of Service May 01, 2019 Admission HPI Per Admitting Provider 68-year-old female with a history of stapedectomy presents with severe vertigo beginning today at 4:30 PM. Patient states that she has had episodic vertigo over the past 1 month. She denies any focal neuro deficits including facial droop, speech issues, weakness, numbness, headache. The patient denies any recent history of viral symptoms including URI and gastroenteritis. The patient does report having approximately 4 episodes of vomiting since her symptoms began Admission Exam Per Admitting Provider Constitutional: WD/WN, vitals as above Eyes: PERRL, conjunctivae normal, anicteric sclerae + nystagmus (Horizontal) ENMT: Ears: + TM abnormality (Mucoid effusion behind right TM, no erythema); no hearing impairment and no external ear abnormality Nose: no external nose abnormality Mouth: no lip abnormality, no oropharynx abnormality and no tongue abnormality Neck: trachea midline, no thyromegaly Respiratory: normal respiratory effort, lungs clear to auscultation Cardiovascular: RRR, no murmur, no edema Gastrointestinal (Abdomen): normal bowel sounds, soft, nontender, no hepatosplenomegaly Musculoskeletal: no cyanosis or clubbing, extremities motor strength 5/5 Skin: no rashes, warm and dry Neurologic: PERRL, EOMI, accommodation nl, no face palsy, no dysarthria Psychiatric: A+Ox3, euthymic affect Principal Diagnosis Dizziness/Vertigo Discharge Exam General: Resting comfortably HEENT: NC/AT; PERRLA with EOMI; [place] conjunctiva, MMM. No erythema of posterior pharynx Neck: Supple and nontender Cardiac: RRR Lungs: CTA bilaterally Abdomen: Bowel normoactive X 4; Nontender to palpation Extremities: Warm. No edema present Neuro: No focal weakness Skin: No rash Discharge Data Allergies Allergy/AdvReac Type Severity Reaction Status Date / Time Unable to Assess Allergy Unverified 04/30/19 21:14 Consultations 04/30/19 22:04 ED Decision to Admit Stat 05/01/19 02:12 Consult Case Management - Discharge Planning Routine Consult Neurology Routine Ordered Studies 04/30/19 20:19 CT angio head w con Stat CT angio neck with con Stat CT head/brain wo con Stat CXR 05/01/19 02:12 MR brain IAC wo/w con Routine Hospital Course (1) Vertigo: Presented with vertigo, concern for peripheral origin. Neurology consulted, appreciate input. Does not think this is from acute CVA. CTA of Head/Neck and CT head was negative. Did not obtain brain MRI due to h/o stapedectomy. Lipid panel with elevated triglycerides; Hgb A1C was 5.4. PT evaluation completed -- José Miguel maneuver completed with minimal improvement. Sc ript provided at discharge for outpatient PT. Received ASA 81 mg daily as inpt -- will d/c at discharge. F/u with PCP following hospitalization. Script provided for Meclizine 12.5 mg QID prn. -Recommend close follow-up with ENT for vestibular evaluation as an outpatient (2) Vomiting: Related to vertigo; improved by time of discharge. (3) Bradycardia: HR 50's during this admission -- SB on monitor. Not on beta blockade at home. Likely baseline for patient. (4) Hypotension: BP was low, 90-100's SBP during this admission. Orthostatics were negative on day of discharge; encouraged PO fluid intake. Encouraged PO fluid intake. Pt. was stable for discharge to home on 05/01/19. Total Time Total Time Spent Total Time Spent (In Minutes): >30 minutes Discharge Plan Discharge Items Patient Disposition: Home - Self-Care Reason For Visit: TIA SYMPTOMS Discharge Diagnosis: Dizziness/Vertigo Condition: Fair Discharge Goals: Decrease discomfort, Diagnostic testing, Improve disease control, Improve function, Increase independence, Improve nutritional status and Prevent disease Activity: As commented below Exercise/Sports: Wait until after follow-up appointment Non-emergency contact: Primary Care Provider Call non-emergency contact if: you have any medication questions, your symptoms worsen, your pain is not controlled, your pain is worsening, your pain is unusual for you, your pain is concerning for you and you have a fever Follow-up/Referrals: Dr. Augusto Singh [Other] - 05/04/19 11:15 am (Please, follow up with Dr. Singh on May 04 at 11:15 am. *If you need change this appointment, call the office at [phone].) Dane Rodríguez [Outside Practitioners] - 05/18/19 10:45 am (Please, follow up with Dr. Rodríguez on May 18 at 10:45 am. *This appointment is in the [facility] office. If you need to change this appointment, call the office at [phone].) Diet: Heart Healthy Addtl Provider Instructions: 1. Dizziness/Vertigo/Nausea * Prescription was provided for Meclizine -- please take 12.5 mg every 6 hours for dizziness/vertigo at home. * An appointment will be scheduled with ENT to discuss further evaluation of dizziness. * Script was provided for outpatient physical therapy -- José Miguel maneuvers may help with your symptoms. 2. Please schedule an appointment with your primary care provider in 7-10 days to discuss this hospital admission.. Prescriptions: New meclizine 12.5 mg Tablet 12.5 mg PO QID PRN (Reason: dizziness or vertigo) 30 Days Qty: 30 RF: 1 Continued melatonin 3 mg Tablet PO HS PRN (Reason: Sleep) RF: 0 valerian root 100 mg Capsule PO DAILY PRN (Reason: Sleep) RF: 0 ibuprofen 200 mg Tablet 200 mg PO DIRECTED PRN (Reason: Pain) RF: 0 Stand-Alone Forms: [facility] Discharge Orders: Discharge Order (Routine); Ordered 05/01/19 Ordered By: Jie Nathan Admission Data Admit Date/Time: 05/01/19 00:13 Attending Provider: Jie Nathan Admit Provider: Marc Guerrero Primary Care Provider: PCP,TOM Other Providers: Jake Haynes Emile Pierre III Service: Telemetry Medical Other Interventions: Discharge Summary Assessment (RN) Last Done: 05/01/19 16:59 Pending Studies at Discharge: No DC Date/Time DO NOT enter until pt leaves facility: 05/01/19 18:22 Supervising Physician Co-Signing Physician Notes PA Supervision Note: I personally saw and examined the patient. I verified all montez points and agree with JONATHON Dior with the following exceptions and/or additions: Patient feeling much improved, still a little unsteady on her feet with walking but does okay with assistance. No further nausea or vomiting, is tolerating p.o. Vitals reviewed Gen: AAOx3, NAD HEENT: Anicteric sclerae, left eye strabismus, mild horizontal nystagmus with looking to the right CV: RRR no mgr nl S1S2 Pulm: CTAB no wcr Abd: +BS soft NT ND no masses or hernias Ext: No edema, 2+ DP pulses Skin: No rashes, warm/dry Neuro: Full strength throughout 68-year-old female who presented with nausea vomiting and dizziness, likely related to peripheral vertigo -Recommend follow-up with ENT as an outpatient -Outpatient PT and meclizine trial which may not be beneficial
--- NOTE | 2019-05-15 09:00 | Coding Query ---
A supporting diagnosis is required for the test/procedure performed on this patient in order for us to be reimbursed by the patient's insurance. Please provide a supporting diagnosis for the following test/procedure listed below next to the test name along with your signature. *If there is no additional diagnosis for this patient that would support the following test/procedure please document that below next to the test/procedure. Test(s)/Procedure(s) that require a supporting diagnosis: Canalith Repositioning Procedure DIAGNOSIS:___intractable vertigo Provider Signature: Swati Guerrero MD Date: __05/19/2019____ Thank you Kari Lee [facility] Information Management Once completed, please kindly fax back to [phone] For questions please call [phone] DE[facility]
== END 2019-05-01 18:22 | disposition home or self-care (01) ==
LOC: 2N 19:59 → ED 19:59 → SUATTDRO 05-01 00:13 → 2N 05-01 00:54